=== PATIENT | female | born 1980 | race Caucasian/White ===

== ENCOUNTER 2017-07-23 17:28 | Emergency (ER) | payer BC, OTHER ==
[~2017-07-23 17:28] MED LIST: ISOVUE-370 76%-LOCM 1 ML ONE
[2017-07-23] MEDS ORDERED: Morphine 10 MG/ML VIAL ONE (18:25)
[2017-07-23 18:32] LABS: #Lymphocytes 1.5 thou/uL (1.20-3.40); #Monocytes 0.8 thou/uL (0.11-0.59); #Neutrophils 9.1 thou/uL (1.40-6.50); %Basophils 0.3 % (0.0-1.0); %Eosinophils 0.4 % (0.0-10.0); %Lymphocytes 13.1 % (21.0-51.0); %Monocytes 7.2 % (0.0-10.0); Hematocrit 40.3 % (36.0-47.0); Mean Platelet Volume 6.5 fL (7.4-10.4); Red Blood Cell (RBC) Count 4.29 mill/uL (4.20-5.40); White Blood Cell (WBC) Count 11.5 thou/uL (4.8-10.8)
[2017-07-23 18:40] LABS: PTT 25.8 SEC (22.9-36.1)
[2017-07-23 18:53] LABS: ALT (SGPT) 21 U/L (8-55); AST (SGOT) 22 U/L (5-34); Alkaline Phosphatase 49 U/L (40-150); Anion Gap 11 mmol/L (10-20); BUN (Urea Nitrogen) 13 mg/dL (7.0-18.7); Bilirubin, Total 0.6 mg/dL (0.2-1.2); Calc. Creatinine Clearance 0 mL/min (70-130); Calcium 8.5 mg/dL (7.8-10.44); Carbon Dioxide 22 mmol/L (22-29); Chloride 107 mmol/L (98-107); Estimated GFR-MDRD 68; Globulin 2.8 g/dL (2.4-3.5); Lipase 690 U/L (8-78); Protein, Total 6.6 g/dL (6.0-8.3)
--- NOTE | 2017-07-23 19:18 | RAD ---
RIGHT FEMUR TWO VIEWS: History: 36-year-old female with right femur injury following a fall from a ladder. IMPRESSION: No fracture, dislocation, or other significant acute osseous abnormality. POS: [facility]
--- NOTE | 2017-07-23 19:19 | RAD ---
RIGHT ELBOW FOUR VIEWS: History: 36-year-old female with right elbow pain following an injury from a fall off a ladder. IMPRESSION: No fracture, dislocation, or other significant acute osseous abnormality. POS: [facility]
--- NOTE | 2017-07-23 19:20 | RAD ---
LEFT FEMUR TWO VIEWS: History: 36-year-old female with left femur injury following a fall from a ladder. IMPRESSION: No fracture or dislocation or other acute osseous abnormality of the left femur. POS: [facility]
--- NOTE | 2017-07-23 20:01 | CT ---
NONCONTRAST HEAD CT: History: Patient fell from a ladder. Post-traumatic pain. Comparison: None. Technique: Noncontrast head CT performed from skull base to skull vertex. FINDINGS: No parenchymal hemorrhage. No extraaxial hematoma. No midline shift. Basilar cisterns are patent. Br ain volume is age appropriate. Cortical norman white matter differentiation is preserved. Pedicles and sulci are patent and symmetric. Calvarium is intact. Adequate aeration of the sinuses and mastoid air cells. IMPRESSION: No intracranial post-traumatic sequellae. POS: [facility]
--- NOTE | 2017-07-23 20:29 | CT ---
CERVICAL SPINE CT WITHOUT CONTRAST: History: Patient fell from a ladder approximately 6-8 feet. Landed on right hip and hit right ear on the wall. Post-traumatic pain. Comparison: None. Technique: Cervical spine CT is performed without contrast. Sagittal and reformatted images are subm itted for interpretation. FINDINGS: Adequate aeration of the visualized mastoid air cells. There is no prevertebral soft tissue swelling. No epidural hematoma. No significant central canal st enosis or foraminal narrowing. Elevation is limited by technique. Visualized soft tissue neck struct ures are unremarkable. Upper mediastinum and lung apices are unremarkable. Cervical spine vertebral body height is maintained. No fracture. Straightening of the normal cervical lordosis likely due to patient position, muscle spasm or cervic al collar. Study is not tailored to assess for ligamentous injury. Odontoid process is intact. Lateral masses of C1 and C2 articulate appropriately. Appropriate articu lation of the intraarticular facets. IMPRESSION: 1. Straightening of the normal cervical lordosis as above. Current study is not tailored to assess f or ligamentous injury. 2. No cervical spine fracture. POS: [facility]
--- NOTE | 2017-07-23 20:46 | CT ---
CHEST CT SCAN WITH IV CONTRAST ABDOMEN AND PELVIS CT SCAN WITH IV CONTRAST THORACIC SPINE CT SCAN WITH IV CONTRAST LIMITED LUMBAR SPINE CT SCAN WITH IV CONTRAST LIMITED: History: 36-year-old female with injury from a fall of approximately 6-8 ft from a ladder, landing on her rig ht hip and hitting her ear against a wall with back pain. FINDINGS: CHEST, ABDOMEN AND PELVIS CT SCAN WITH IV CONTRAST: There are some mild dependent changes in the posterior lower lung zones. The mediastinum is unremark able. No evidence for mediastinal hematoma. No pericardial or pleural effusion. No pneumothorax. The liver, gallbladder, pancreas, spleen, adrenal glands, and kidneys are unremarkable. No solid org an injury. No free intraperitoneal fluid or evidence for retroperitoneal hematoma. There is note of a mild anterior superior compression fracture at T12 without retropulsion. Uterus and adnexal region s are unremarkable. IMPRESSION: Mild anterior superior compression fracture of T12 without retropulsion. No evidence for other signi ficant acute post-traumatic process in the chest, abdomen, or pelvis. THORACIC SPINE CT SCAN WITH IV CONTRAST LIMITED: Mild anterior superior wedge compression fracture of T12 without retropulsion. 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 No other significant abnormality. IMPRESSION: Mild anterior superior wedge compression fracture of T12 without retropulsion. LUMBAR SPINE CT SCAN WITH IV CONTRAST LIMITED: IMPRESSION: No evidence for acute fracture. Bilateral pars intraarticularis defects at L5 without evidence for s ignificant anterolisthesis. Findings discussed with Dr. Edmonds by phone at 8:12 p.m. 07-23-17. Code CR POS: [facility]
[2017-07-23] MEDS ORDERED: Promethazine HCl 25 MG/ML VIAL ONE (21:38)
[2017-07-23] MEDS ORDERED: HYDROcodone/Acetaminophen 5/325 mg Tablet ONE (21:55)
[2017-07-23] MEDS ORDERED: Lidocaine 1% PF 5 ML VIAL ONE (21:59)
== END 2017-07-23 22:51 | disposition home or self-care (01) ==
LOC: ERS 17:28
DX: S22.089A Unspecified fracture of T11-T12 vertebra, initial encounter for closed fracture (principal); S01.311A Laceration without foreign body of right ear, initial encounter; S50.01XA Contusion of right elbow, initial encounter; R74.8 Abnormal levels of other serum enzymes; W11.XXXA Fall on and from ladder, initial encounter
CPT/HCPCS: 12011; 36415; 70450; 71260; 72125; 74177; 80053; 80307; 83690; 84703; 85025; 85610; 85730; 96374; 96375; J2001; J2270; J2550

== ENCOUNTER 2017-08-22 16:23 | Outpatient (CLI) | payer OTHER, BC ==
--- NOTE | 2017-08-22 16:39 | RAD ---
2 VIEWS LUMBAR SPINE: Date: 08/22/17 HISTORY: Compression fracture. Follow-up exam. COMPARISON: None. CORRELATION: Chest, abdomen, and pelvic CT dated 07/23/17. FINDINGS: Two views of the lumbar spine demonstrate a mild compression fracture at the T12 level. Dedicated tho racic spine imaging is recommended. Note, there are five lumbar-type vertebral bodies. When compared to the previous exam, there does appear to be possible loss of vertebral body height. Again, dedicate d thoracic spine imaging is recommended. IMPRESSION: Mild compression deformity at the T12 level. POS: [facility]
== END 2017-08-22 16:24 | disposition home or self-care (01) ==
LOC: TBSIIMAG 16:23
PROVIDERS: ATTEND Physician Assistant
DX: S22.009A Unspecified fracture of unspecified thoracic vertebra, initial encounter for closed fracture (principal); M43.8X4 Other specified deforming dorsopathies, thoracic region
CPT/HCPCS: 72100

== ENCOUNTER 2017-09-21 15:29 | Outpatient (CLI) | payer OTHER, BC ==
--- NOTE | 2017-09-21 16:33 | RAD ---
LUMBAR SPINE TWO VIEWS: 09/21/17 HISTORY: Back pain. T12 compression fracture. COMPARISON: 08/22/17. FINDINGS: There are five lumbar type vertebrae. Pedicles are intact. Mild loss of height of the T12 superior en d plate is partially visualized on the lateral view and appears similar to the previous exam. Verteb ral body heights and alignment of the lumbar spine are maintained. There is incomplete posterior fusi on at the first sacral level. IMPRESSION: Stable radiographic appearance of the lumbar spine. POS: [facility]
== END 2017-09-21 15:30 | disposition home or self-care (01) ==
LOC: TBSIIMAG 15:29
PROVIDERS: ATTEND Neurological Surgery
DX: S22.009A Unspecified fracture of unspecified thoracic vertebra, initial encounter for closed fracture (principal)
CPT/HCPCS: 72100

== ENCOUNTER 2017-10-25 14:41 | Outpatient (CLI) | payer BC, OTHER ==
--- NOTE | 2017-10-25 15:16 | RAD ---
TWO VIEWS OF THE LUMBAR SPINE: DATE: 10/25/17. COMPARISON: 09/21/17. HISTORY: Reevaluate T12 compression fracture. FINDINGS: Lumbar vertebral body height and alignment is within normal limits. No evidence for a lumbar spine f racture is noted. There may be mild vertebral body height loss at the T12 level, not significantly changed. Lateral im aging of the T12 level is limited secondary to positioning. Recommend dedicated thoracic spine radio graphs. L5 pars defects are suspected. IMPRESSION: Mild loss of vertebral body height anteriorly at T12 suggests a stable fracture, not well characteriz ed on this exam. This could be best assessed via thoracic spine radiographs. No lumbar spine fractu re is evident. POS: [facility]
== END 2017-10-25 14:42 | disposition home or self-care (01) ==
LOC: TBSIIMAG 14:41
PROVIDERS: ATTEND Neurological Surgery
DX: S22.008A Other fracture of unspecified thoracic vertebra, initial encounter for closed fracture (principal)
CPT/HCPCS: 72100

== ENCOUNTER 2017-12-11 13:52 | Emergency (ER) | payer BC, OTHER ==
--- NOTE | 2017-12-11 15:00 | RAD ---
ONE VIEW CHEST TWO VIEWS ABDOMEN: HISTORY: Pain. FINDINGS: ONE VIEW CHEST: Normal cardiac silhouette. The pulmonary vessels and hilum are normal. Costophrenic angles are deborah r. No masses or consolidation. No pneumothorax or osseous abnormalities. Bilateral nipple shadows are noted. ABDOMEN 2 VIEWS: Nonspecific bowel gas pattern. No evidence of bowel distention or dilatation. No differential air f luid levels. No pneumoperitoneum. No suspicious density in the abdomen and pelvis. IMPRESSION: 1. No acute cardiopulmonary process. 2. Nonspecific bowel gas pattern. POS: [facility]
[2017-12-11 15:07] LABS: #Eosinphils 0.1 thou/uL (0.0-0.7); #Lymphocytes 1.3 thou/uL (1.20-3.40); #Monocytes 0.7 thou/uL (0.11-0.59); #Neutrophils 6.6 thou/uL (1.40-6.50); %Basophils 0.1 % (0.0-1.0); %Eosinophils 0.6 % (0.0-10.0); %Lymphocytes 14.8 % (21.0-51.0); %Monocytes 7.9 % (0.0-10.0); %Neutrophils 76.6 % (42.0-75.0); Mean Corpuscular HGB CONC 33.2 g/dL (32.0-36.0); Mean Corpuscular Hemoglobin 31.4 pg (27.0-31.0); Mean Corpuscular Volume 94.5 fl (81.0-99.0); Mean Platelet Volume 6.8 fL (7.4-10.4); Platelet Count 157 thou/uL (130-400); RBC Distribution Width 11.2 % (11.5-14.5); Red Blood Cell (RBC) Count 4.13 mill/uL (4.20-5.40); White Blood Cell (WBC) Count 8.6 thou/uL (4.8-10.8)
[2017-12-11 15:28] LABS: ALT (SGPT) 18 U/L (8-55); AST (SGOT) 19 U/L (5-34); Albumin 3.8 g/dL (3.5-5.0); Alkaline Phosphatase 50 U/L (40-150); Anion Gap 12 mmol/L (10-20); BUN (Urea Nitrogen) 14 mg/dL (7.0-18.7); Bilirubin, Total 0.6 mg/dL (0.2-1.2); Calc. Creatinine Clearance 0 mL/min (70-130); Calcium 8.3 mg/dL (7.8-10.44); Carbon Dioxide 20 mmol/L (22-29); Chloride 109 mmol/L (98-107); Estimated GFR-MDRD 70; Globulin 2.8 g/dL (2.4-3.5); Glucose 99 mg/dL (70-105); Lipase 15 U/L (8-78); Potassium 3.5 mmol/L (3.5-5.1); Protein, Total 6.6 g/dL (6.0-8.3); Sodium 137 mmol/L (136-145)
[2017-12-11 15:55] LABS: Bilirubin Negative (Negative); Blood, Urine Negative (Negative); Clarity CLOUDY (Clear); Glucose, Urine (Dipstick) Negative (Negative); Leukocyte Large (Negative); Nitrite Negative (Negative); Protein, Urine (Dipstick) Negative (Neg-Trace); Specific Gravity, Urine 1.019 (1.002-1.036); Urobilinogen 0.2 mg/dL (0.2-1.0); pH, Urine 5.5 (5.0-9.0)
[2017-12-11 15:58] LABS: Bacteria/HPF 2+ HPF (None Seen); Hyaline Casts/LPF 7-10 HYALINE CAST LPF (0-3 Hyaline); Pathc Cast-AUWi Flag 1.76 (0-2.49); RBC/HPF 0-3 HPF (0-3)
[2017-12-11] MEDS ORDERED: cefTRIAXone\\ROCEPHIN 500 MG VIAL ONE ×2 (16:36→16:53)
[2017-12-11] MEDS ORDERED: Lidocaine 1% PF 5 ML VIAL ONE (16:38)
== END 2017-12-11 17:12 | disposition home or self-care (01) ==
LOC: ERS 13:52
DX: N39.0 Urinary tract infection, site not specified (principal); F32.9 Major depressive disorder, single episode, unspecified
CPT/HCPCS: 36415; 74022; 80053; 81003; 81015; 83690; 84702; 85025; 96372; J0696; J2001